=== PATIENT | female | born 1985 | race Caucasian/White ===

== ENCOUNTER 2019-01-07 22:33 | Emergency (ER) | payer SELFPAY ==
[2019-01-07 22:39] VITALS: BP 110/74; PULSE 88; TEMP 97.4; BMI 25.0
--- NOTE | 2019-01-07 22:44 | PDOC ---
History of Present Illness - General Chief Complaint: Bite Stated Complaint: DOG BITE Time Seen by Provider: 01/07/19 22:39 - History of Present Illness Initial Comments: 01/07/19 22:43 33-year-old female bitten by a dog 3 days ago on her right upper arm. The dog can be watched and is fully vaccinated. She's had no sequela since the bite. Past History - Past Medical History Allergies/Adverse Reactions: Allergies Allergy/AdvReac Type Severity Reaction Status Date / Time Penicillins Allergy Verified 01/07/19 22:39 Home Medications: Ambulatory Orders Doxycycline Hyclate 100 mg PO BID #14 capsule 01/07/19 COPD: No Other medical history: Pt denies - Immunization History Immunization Up to Date: Yes - Suicide/Smoking/Psychosocial Hx Smoking History: Never smoked Have you smoked in the past 12 months: No Information on smoking cessation initiated: No Hx Alcohol Use: No Drug/Substance Use Hx: No Substance Use Type: None Review of Systems - Review of Systems Integumentary: Yes: See HPI *Physical Exam - Vital Signs Last Vital Signs Temp Pulse Resp BP Pulse Ox 97.4 F L 88 18 110/74 99 01/07/19 22:37 01/07/19 22:37 01/07/19 22:37 01/07/19 22:37 01/07/19 22:37 - Physical Exam Comments: 01/07/19 22:44 Is a superficial laceration on the medial aspect of the right elbow with surrounding ecchymosis. No induration erythema warmth or sensitivity. No indication of infection. Moderate Sedation - Procedure Monitoring Vital Signs: Procedure Monitoring Vital Signs Temperature 97.4 F L 01/07/19 22:37 Pulse Rate 88 01/07/19 22:37 Respiratory Rate 18 01/07/19 22:37 Blood Pressure 110/74 01/07/19 22:37 O2 Sat by Pulse Oximetry (%) 99 01/07/19 22:37 *DC/Admit/Observation/Transfer Diagnosis at time of Disposition: Dog bite - Discharge Dispostion Disposition: HOME Condition at time of disposition: Stable Decision to Admit order: No - Prescriptions Prescriptions: Doxycycline Hyclate 100 mg PO BID #14 capsule - Referrals - Patient Instructions Printed Discharge Instructions: Animal Bites, DI for Dog Bite Additional Instructions: Please take the antibiotics as directed. Return to the emergency room for worsening symptoms. Follow-up with your primary care physician in one to 2 days for further evaluation and treatment options. Tylenol Motrin as directed for pain. - Post Discharge Activity
== END 2019-01-07 23:44 | disposition home or self-care (01) ==
LOC: JERFT 22:33
DX: S40.871A Other superficial bite of right upper arm, initial encounter (principal); W54.0XXA Bitten by dog, initial encounter; Y93.89 Activity, other specified; Y92.89 Other specified places as the place of occurrence of the external cause; Y99.8 Other external cause status
CPT/HCPCS: 99281-25

== ENCOUNTER 2021-10-21 10:30 | Emergency (ER) | payer OTHER ==
[2021-10-21 11:07] VITALS: TEMP 98.4; BMI 27.1
[2021-10-21] MEDS ORDERED: SODIUM CHLORIDE 1,000 ML IV STA (11:57)
[2021-10-21] MEDS ORDERED: METOCLOPRAMIDE HCL INJECTION 10 MG/2 ML VIAL IVPB ONE (11:59)
[2021-10-21] MEDS ORDERED: METOCLOPRAMIDE HCL INJECTION 10 MG/2 ML VIAL ONE (12:08)
[2021-10-21 12:41] LABS: EPI CELLS >36 /uL (0-25.1); HYALINE CASTS 6 /uL (0-3.1); URINE APPEARANCE CLOUDY; URINE BACTERIA 5054 /uL (0-1359); URINE BILIRUBIN NEGATIVE (NEGATIVE); URINE COLOR DK YELLOW; URINE GLUCOSE (UA) NEGATIVE (NEGATIVE); URINE KETONE TRACE (NEGATIVE); URINE LEUK ESTERASE 2+ (NEGATIVE); URINE NITRITE NEGATIVE (NEGATIVE); URINE PROTEIN 1+ (NEGATIVE); URINE RBC 11 /uL (0-23.9); URINE WBC 72 /uL (0-25.8)
[2021-10-21 13:58] LABS: BASO % 0.5 % (0-2.0); EOS % 0.9 % (0-4.5); HEMATOCRIT 41.3 % (32.4-45.2); HEMOGLOBIN 13.9 GM/dL (10.7-15.3); LYMPH % 23.3 % (8-40); MCH 29.4 pg (25.7-33.7); MCHC 33.7 g/dl (32.0-36.0); MEAN CELL VOLUME 87.4 fl (80-96); MEAN PLT VOLUME 8.2 fl (7.5-11.1); MONO % 6.4 % (3.8-10.2); NEUT % 68.9 % (42.8-82.8); PLATELET COUNT 242 10^3/uL (134-434); RBC 4.73 M/mm3 (3.60-5.2); RDW 12.8 % (11.6-15.6); WHITE BLOOD COUNT 6.3 K/mm3 (4.0-10.0)
[2021-10-21 16:17] VITALS: BP 116/63; PULSE 83
== END 2021-10-21 16:19 | disposition home or self-care (01) ==
LOC: JER 10:30
PROC: 3E033GC Introduction of Other Therapeutic Substance into Peripheral Vein, Percutaneous Approach (ICD-10-PCS; principal; 2021-10-21)
DX: O20.0 Threatened abortion (principal); O23.41 Unspecified infection of urinary tract in pregnancy, first trimester; Z3A.08 8 weeks gestation of pregnancy
CPT/HCPCS: 36415; 76817-TC; 81003; 84702; 85025; 86850; 86900; 86901; 87086; 87491; 87591; 99284-25

== ENCOUNTER 2022-04-13 10:10 | Emergency (ER) | payer OTHER ==
[2022-04-13 10:28] VITALS: BP 94/61; PULSE 96; TEMP 97.9; BMI 28.5
[2022-04-13] MEDS ORDERED: ACETAMINOPHEN 500 MG TABLET (FP) PO ONE (11:58)
[2022-04-13] MEDS ORDERED: ACETAMINOPHEN 500 MG TABLET (FP) ONE (12:25)
== END 2022-04-13 13:50 | disposition home or self-care (01) ==
LOC: JER 10:10
DX: R05.1 Acute cough (principal); J02.9 Acute pharyngitis, unspecified; R09.81 Nasal congestion
CPT/HCPCS: 0241U-QW; 87070; 99283-25

== ENCOUNTER 2024-09-20 13:12 | Emergency (ER) | payer OTHER ==
[2024-09-20 13:25] VITALS: BP 127/78; PULSE 110; RESP 16; TEMP 99.6; BMI 28.2
[2024-09-20 15:36] LABS: BASO % 0.4 % (0-2.0); EOS % 0.3 % (0-4.5); HEMATOCRIT 42.2 % (32.4-45.2); HEMOGLOBIN 14.4 GM/dL (10.7-15.3); MCH 28.8 pg (25.7-33.7); MEAN CELL VOLUME 84.6 fl (80-96); MEAN PLT VOLUME 8.3 fl (7.5-11.1); MONO % 4.7 % (3.8-10.2); NEUT % 81.6 % (42.8-82.8); PLATELET COUNT 169 10^3/uL (134-434); RBC 4.99 M/mm3 (3.60-5.2); RDW 13.3 % (11.6-15.6); WHITE BLOOD COUNT 9.8 K/mm3 (4.0-10.0)
[2024-09-20 15:51] LABS: POTASSIUM 3.7 mmol/L (3.5-5.1)
[2024-09-20] MEDS ORDERED: ACETAMINOPHEN INJECTION 100 ML ONE (15:52)
[2024-09-20] MEDS ORDERED: KETOROLAC TROMETHAMINE 30 MG/1 ML VIAL ONE (15:52)
[2024-09-20] MEDS ORDERED: DEXAMETHASONE SOD PHOSPHATE 4 MG/1 ML VIAL ONE (15:52)
[2024-09-20 15:53] LABS: CALCIUM 8.9 mg/dL (8.5-10.1)
[2024-09-20 15:54] LABS: ALBUMIN 3.5 g/dl (3.4-5.0); BLOOD UREA NITROGEN 7.8 mg/dL (7-18)
[2024-09-20 15:57] LABS: CREATININE 0.7 mg/dL (0.55-1.3)
[2024-09-20 15:58] LABS: BILIRUBIN,TOTAL 0.4 mg/dL (0.2-1); TOT PROT 7.7 g/dl (6.4-8.2)
[2024-09-20 16:04] LABS: THROAT:GRP A STREP DETECTED (NOTDETECTED)
[2024-09-20] MEDS: DEXAMETHASONE SOD PHOSPHATE 4 MG/1 ML VIAL IVPUSH ONE (16:21)
[2024-09-20] MEDS: ACETAMINOPHEN 1000 MG/100 ML BAG IVPB ONE (16:21)
[2024-09-20] MEDS: KETOROLAC TROMETHAMINE 30 MG/1 ML VIAL IVPUSH ONE (16:21)
[2024-09-20 16:46] LABS: HIV INTERPRETATION NEGATIVE (NEGATIVE)
[2024-09-20] MEDS ORDERED: CLINDAMYCIN HCL 150 MG CAPSULE (FP) ONE (18:30)
[2024-09-20] MEDS: CLINDAMYCIN HCL 150 MG CAPSULE (FP) PO ONE (18:44)
== END 2024-09-20 19:08 | disposition home or self-care (01) ==
LOC: JER 13:12
PROC: 3E033NZ Introduction of Analgesics, Hypnotics, Sedatives into Peripheral Vein, Percutaneous Approach (ICD-10-PCS; principal; 2024-09-20)
PROC: 3E033GC Introduction of Other Therapeutic Substance into Peripheral Vein, Percutaneous Approach (ICD-10-PCS; 2024-09-20)
PROC: 3E0333Z Introduction of Anti-inflammatory into Peripheral Vein, Percutaneous Approach (ICD-10-PCS; 2024-09-20)
DX: J02.9 Acute pharyngitis, unspecified (principal); R19.7 Diarrhea, unspecified; R50.9 Fever, unspecified; Z20.822 Contact with and (suspected) exposure to COVID-19
CPT/HCPCS: 0241U-QW; 36415; 71250-TC; 80053; 84484; 84702; 85025; 86803; 87389; 87651; 93005; 93010; 99285-25; J0131

== ENCOUNTER 2025-01-13 18:10 | Emergency (ER) | payer OTHER ==
[2025-01-13 18:38] VITALS: RESP 16; BMI 29.0
[2025-01-13] MEDS ORDERED: METOCLOPRAMIDE HCL INJECTION 10 MG/2 ML VIAL ONE (20:21)
[2025-01-13] MEDS ORDERED: ACETAMINOPHEN INJECTION 100 ML ONE (20:21)
[2025-01-13] MEDS: SODIUM CHLORIDE 0.9% 500 ML INFUS.BAG IV ONE (20:31)
[2025-01-13] MEDS: ACETAMINOPHEN 1000 MG/100 ML BAG IVPB ONE (20:31)
[2025-01-13] MEDS: METOCLOPRAMIDE HCL INJECTION 10 MG/2 ML VIAL IVPB ONE (20:32)
[2025-01-13 21:09] LABS: BASO % 0.7 % (0-2.0); EOS % 2.3 % (0-4.5); HEMOGLOBIN 12.4 GM/dL (10.7-15.3); LYMPH % 41.4 % (8-40); MCH 27.8 pg (25.7-33.7); MCHC 32.6 g/dl (32.0-36.0); MEAN CELL VOLUME 85.2 fl (80-96); MONO % 7.5 % (3.8-10.2); NEUT % 48.1 % (42.8-82.8); PLATELET COUNT 174 10^3/uL (134-434); RBC 4.46 M/mm3 (3.60-5.2); RDW 13.1 % (11.6-15.6); WHITE BLOOD COUNT 5.9 K/mm3 (4.0-10.0)
[2025-01-13 21:29] LABS: POTASSIUM 3.5 mmol/L (3.5-5.1)
[2025-01-13 21:31] LABS: ALBUMIN 3.3 g/dl (3.4-5.0); BLOOD UREA NITROGEN 11.4 mg/dL (7-18); CALCIUM 8.3 mg/dL (8.5-10.1)
[2025-01-13 21:35] LABS: CREATININE 0.6 mg/dL (0.55-1.3)
[2025-01-13 21:36] LABS: BILIRUBIN,TOTAL 0.3 mg/dL (0.2-1); TOT PROT 6.8 g/dl (6.4-8.2)
[2025-01-13 22:26] LABS: HIV INTERPRETATION NEGATIVE (NEGATIVE)
[2025-01-14 00:31] VITALS: BP 111/71; PULSE 89; TEMP 98.6
== END 2025-01-14 00:32 | disposition home or self-care (01) ==
LOC: JER 18:10
PROC: 3E033NZ Introduction of Analgesics, Hypnotics, Sedatives into Peripheral Vein, Percutaneous Approach (ICD-10-PCS; principal; 2025-01-13)
PROC: 3E033GC Introduction of Other Therapeutic Substance into Peripheral Vein, Percutaneous Approach (ICD-10-PCS; 2025-01-13)
DX: R51.9 Headache, unspecified (principal); R42 Dizziness and giddiness; H53.8 Other visual disturbances; R29.898 Other symptoms and signs involving the musculoskeletal system; R20.0 Anesthesia of skin
CPT/HCPCS: 36415; 70450-TC; 70496-TC; 70498-TC; 80053; 84703; 85025; 86803; 87389; 96374; 96375; 99285-25; J0131; Q9967